=== PATIENT | female | born 1945 | race African-American/Black ===

== ENCOUNTER 2022-06-14 23:06 | Inpatient (IN) | payer MEDICARE, OTHER ==
[~2022-06-14] VITALS: Ht 172.7 cm; Wt 75.7 kg
[~2022-06-14 23:06] MED LIST: DABI75CA3 PO; LEVO100T9 PO
[2022-06-14] MEDS ORDERED: IPRATROPIUM BROMIDE (0.02%) 0.5MG/2.5ML NEB HHN STA (23:23)
[2022-06-14] MEDS ORDERED: METHYLPREDNISOLONE SOD SUCC 125 MG/2 ML VIAL IV STA (23:23)
[2022-06-14] MEDS ORDERED: ALBUTEROL (0.083%) 2.5MG/3ML NEB HHN STA (23:23)
[2022-06-14] MEDS ORDERED: MAGNESIUM 2 G PREMIX 50 ML IV ONE (23:30)
[2022-06-14] MEDS ORDERED: ASPIRIN 81MG TABLET PO ONE (23:30)
[2022-06-14 23:55] LABS: BASOPHILS % 0.7 % (0.0-2.0); EOSINOPHILS % 0.9 % (0.0-5.0); HEMATOCRIT. 31.6 % (36.0-48.0); LYMPHOCYTES % 31.5 % (20.0-50.0); MEAN CORPUSCULAR HEMOGLOBIN 28.2 pg (28.0-32.0); MEAN PLATELET VOLUME 6.6 fl (7.4-10.4); MONOCYTES % 11.1 % (2.0-8.0); NEUTROPHILS % 55.8 % (40.0-76.0); PLATELET 745 x1000/uL (130-400); RED BLOOD CELL COUNT 3.56 mill/uL (4.2-5.4); RED CELL DISTRIBUTION WIDTH 20.1 % (11.6-14.6)
[2022-06-15 00:06] LABS: CHLORIDE 107 mEq/L (98-107)
[2022-06-15] MEDS ORDERED: LEVOFLOXACIN 750MG PREMIX 150 ML IV ONE (00:45)
[2022-06-15] MEDS ORDERED: IPRATROPIUM BROMIDE (0.02%) 0.5MG/2.5ML NEB HHN NR (02:00)
[2022-06-15] MEDS ORDERED: ALBUTEROL (0.083%) 2.5MG/3ML NEB HHN NR (02:00)
[2022-06-15] MEDS ORDERED: CLONIDINE 0.1MG TABLET PO PRN (08:00)
[2022-06-15] MEDS ORDERED: IPRATROPIUM/ALBUTEROL 0.5-3(2.5)MG/3ML NEB NEB PRN (08:00)
[2022-06-15] MEDS ORDERED: ONDANSETRON HCL 4MG/2ML INJ IV PRN (08:00)
[2022-06-15] MEDS ORDERED: ACETAMINOPHEN 325MG TABLET PO PRN ×2 (08:00)
[2022-06-15] MEDS ORDERED: GUAIFENESIN 200MG/10ML SUGAR FREE UDC PO PRN (08:00)
[2022-06-15] MEDS ORDERED: DOCUSATE SODIUM 100MG CAPSULE PO PRN (08:00)
[2022-06-15] MEDS ORDERED: NA PHOS,M-B/NA PHOS,DI-BA ENEMA 118ML PR PRN (08:00)
[2022-06-15] MEDS ORDERED: MAGNESIUM/ALUMINUM HYDROXIDE/SIMETHICONE 30ML UDC PO PRN (08:00)
[2022-06-15] MEDS ORDERED: PIPERACILLIN/TAZ 3.375G PREMIX 50 ML IV NR (08:30)
[2022-06-15] MEDS ORDERED: ENOXAPARIN 40MG/0.4ML SYR SUBCUT SCH (09:00)
[2022-06-15] MEDS ORDERED: VANCOMYCIN 1500MG in DEXTROSE 5% WATER 250ML IV NR (09:00)
[2022-06-15 09:10] LABS: T4 FREE 1.74 ng/dL (0.76-1.46)
[2022-06-15] MEDS ORDERED: METOPROLOL TARTRATE 25MG TABLET PO SCH (09:30)
[2022-06-15] MEDS ORDERED: FLUCONAZOLE 100MG TABLET PO SCH (09:30)
[2022-06-15 09:48] LABS: FOLIC ACID (FOLATE) SERUM 6.7 ng/mL (>5.38)
[2022-06-15] MEDS ORDERED: MEROPENEM 1,000 MG in SODIUM CHLORIDE 0.9% 100 ML IV SCH (10:15)
[2022-06-15] MEDS: LEVOTHYROXINE SODIUM 100MCG TABLET PO SCH (11:56)
[2022-06-15] MEDS: MEROPENEM 1000MG in NORMAL SALINE 100ML IV SCH ×2 (11:56→22:08)
[2022-06-15] MEDS ORDERED: PIPERACILLIN/TAZOBACTAM 3.375G in DEXT 5% WATER 50ML IV SCH (14:00)
[2022-06-15] MEDS ORDERED: DIGOXIN 125MCG TABLET GT SCH ×2 (16:00→18:00)
[2022-06-15] MEDS: APIXABAN 5 MG TABLET PO SCH (19:33)
[2022-06-15 21:25] VITALS: BP 151/67
[2022-06-16] VITALS (7 sets, daily range): BP systolic 146–163; BP diastolic 43–73
[2022-06-16] MEDS: METOPROLOL TARTRATE 25MG TABLET PO SCH ×2 (02:30→09:00)
[2022-06-16] MEDS: MEROPENEM 1000MG in NORMAL SALINE 100ML IV SCH ×3 (03:18→21:15)
[2022-06-16] MEDS: VANCOMYCIN 1GM PMX (XELLIA) 200 ML IV SCH ×2 (03:57→17:42)
[2022-06-16 07:09] LABS: CHLORIDE 106 mEq/L (98-107)
[2022-06-16 07:20] LABS: INR 1.1; PROTHROMBIN TIME 12.2 sec (9.6-11.0)
[2022-06-16 07:23] LABS: PHOSPHORUS 2.7 mg/dL (2.5-4.9)
[2022-06-16 07:54] LABS: BASOPHILS % 0.2 % (0.0-2.0); HEMATOCRIT. 25.2 % (36.0-48.0); HEMOGLOBIN. 8.4 g/dL (12.0-16.0); LYMPHOCYTES % 9.6 % (20.0-50.0); MEAN CORPUSCULAR VOLUME 87.2 fL (81.0-99.0); MONOCYTES % 8.1 % (2.0-8.0); NEUTROPHILS % 82.1 % (40.0-76.0); PLATELET 586 x1000/uL (130-400); RED BLOOD CELL COUNT 2.89 mill/uL (4.2-5.4); RED CELL DISTRIBUTION WIDTH 21.1 % (11.6-14.6)
[2022-06-16] MEDS ORDERED: FUROSEMIDE 20MG/2ML VIAL IVP SCH (09:00)
[2022-06-16] MEDS ORDERED: FUROSEMIDE 40MG/4ML VIAL IVP SCH (09:00)
[2022-06-16] MEDS ORDERED: SPIRONOLACTONE 25MG TABLET PO SCH (09:00)
[2022-06-16] MEDS: APIXABAN 5 MG TABLET PO SCH ×2 (09:58→17:01)
[2022-06-16] MEDS: LEVOTHYROXINE SODIUM 100MCG TABLET PO SCH (09:59)
[2022-06-16] MEDS ORDERED: LOSARTAN POTASSIUM 25 MG TABLET PO SCH (10:00)
[2022-06-16 12:52] LABS: CLARITY URINE CLEAR (CLEAR); COLOR URINE YELLOW (YELLOW); KETONES URINE NEGATIVE (NEGATIVE); LEUKOCYTE ESTERASE URINE NEGATIVE (NEGATIVE); NITRITE URINE NEGATIVE (NEGATIVE); OCCULT BLOOD URINE 1+ (NEGATIVE); PH URINE 7.5 (4.5-8.0); PROTEIN URINE NEGATIVE (NEGATIVE); SPECIFIC GRAVITY URINE 1.006 (1.005-1.030); UROBILINOGEN URINE 0.2 E.U./dL (0.2-1.0)
== END 2022-06-16 21:30 | disposition short-term general hospital (02) | DRG 871 ==
LOC: ER 23:06 → 6WST 06-15 06:56 → SUPCPDRO 06-15 07:43 → ENRESERV 06-15 22:58
PROVIDERS: ADMIT Internal Medicine; ATTEND Internal Medicine
DX: A41.9 Sepsis, unspecified organism (principal); I50.23 Acute on chronic systolic (congestive) heart failure; J18.9 Pneumonia, unspecified organism; J96.01 Acute respiratory failure with hypoxia; I82.432 Acute embolism and thrombosis of left popliteal vein; I82.413 Acute embolism and thrombosis of femoral vein, bilateral; R64 Cachexia; R65.20 Severe sepsis without septic shock; I11.0 Hypertensive heart disease with heart failure; I48.91 Unspecified atrial fibrillation; D75.838 Other thrombocytosis; D63.8 Anemia in other chronic diseases classified elsewhere; E88.09 Other disorders of plasma-protein metabolism, not elsewhere classified; F03.90 Unspecified dementia, unspecified severity, without behavioral disturbance, psychotic disturbance, mood disturbance, and anxiety; L89.90 Pressure ulcer of unspecified site, unspecified stage; Z20.822 Contact with and (suspected) exposure to COVID-19; E03.9 Hypothyroidism, unspecified; R00.1 Bradycardia, unspecified; Z86.16 Personal history of COVID-19; Z79.899 Other long term (current) drug therapy; Z86.73 Personal history of transient ischemic attack (TIA), and cerebral infarction without residual deficits; Z74.01 Bed confinement status; Z79.01 Long term (current) use of anticoagulants; Z88.0 Allergy status to penicillin; Z88.8 Allergy status to other drugs, medicaments and biological substances; Z93.1 Gastrostomy status; Z68.25 Body mass index [BMI] 25.0-25.9, adult
CPT/HCPCS: 36415; 71045; 80053; 80061; 80162; 81003; 82607; 82746; 83036; 83540; 83605; 83735; 83880; 84100; 84145; 84439; 84443; 84484; 85025; 87426; 93005; 93306; 93970; 96365; 96366; 96375; 99291; C1893; C9803; J1650; J1940; J1956; J2185; J2930; J3370; J3475; J7060